=== PATIENT | male | born 1960 | race Caucasian/White ===

== ENCOUNTER 2023-01-16 05:56 | Day surgery (SDC) | payer OTHER ==
[2023-01-16] MEDS ORDERED: Lactated Ringers 1,000 ML IV SCH (07:00)
[2023-01-16] MEDS ORDERED: Xylocaine-Mpf 2% 5 Ml Vial ONE (08:03)
[2023-01-16] MEDS ORDERED: DIPRIVAN 200 MG/20 ML IV ONE (08:04)
[2023-01-16] MEDS ORDERED: Versed 2 MG/2 ML Injection ONE (08:04)
[2023-01-16] MEDS ORDERED: Ketamine HCl 50 MG/ML ONE (08:06)
[2023-01-16 09:36] VITALS: BP 163/84; PULSE 78; O2SAT 96
--- NOTE | 2023-01-16 14:54 | OP ---
SURGERY DATE/TIME: 01/16/2023 0810 PREOPERATIVE DIAGNOSIS: Tovar's esophagus. POSTOPERATIVE DIAGNOSIS: Tovar's esophagus. PROCEDURE: EGD. SURGEON: Guille Cobian M.D. ANESTHESIA: MAC by Arthur Beltrán CRNA. ESTIMATED BLOOD LOSS: Minimal. SPECIMENS: Three cold forceps biopsies from the gastroesophageal junction. DESCRIPTION OF PROCEDURE: After informed written consent was obtained, the patient was taken to the endoscopy suite. He was placed in left lateral decubitus position and a bite block inserted. Anesthesia was titrated to the desired level of consciousness. Under direct visualization the esophagus was easily traversed. Upon entering the stomach, there was normal rugated gastric mucosa with evidence of a small hiatal hernia. Gastric antrum and duodenum all had normal mucosal appearance. Upon withdrawal careful mucosal inspection revealed no gross abnormalities in the gastric cavity. The gastroesophageal junction had overall normal appearance but due to history of Tovar's esophagus, three cold forceps biopsies were taken from the gastroesophageal junction and sent for pathology. There was mild blood loss. No complications. The scope was removed. The patient was transferred to the recovery room in good condition. He will follow up in a week for pathology results.
== END 2023-01-16 09:25 | disposition home or self-care (01) ==
LOC: SDC 05:56
PROVIDERS: ATTEND Family Medicine
DX: K44.9 Diaphragmatic hernia without obstruction or gangrene (principal); K22.70 Barrett's esophagus without dysplasia
CPT/HCPCS: J2250; J2704